=== PATIENT | female | born 1960 | race Caucasian/White ===

== ENCOUNTER 2019-03-08 06:10 | Day surgery (SDC) | payer OTHER ==
[~2019-03-08] VITALS: Ht 157.5 cm; Wt 74.8 kg
[2019-03-08] MEDS ORDERED: MIDAZOLAM 2 MG/2 ML VIAL ONE (07:36)
[2019-03-08] MEDS ORDERED: fentaNYL 0.05 MG/ML VIAL ONE (07:36)
[2019-03-08] MEDS ORDERED: MIDAZOLAM 2 MG/2 ML VIAL IVP ONE (08:10)
== END 2019-03-08 08:25 | disposition home or self-care (01) ==
LOC: MDS 06:10 → MMU 06:11 → MDS 08:25
PROVIDERS: ATTEND Internal Medicine Gastroenterology
DX: K29.70 Gastritis, unspecified, without bleeding (principal); Z90.49 Acquired absence of other specified parts of digestive tract; Z79.84 Long term (current) use of oral hypoglycemic drugs; K76.0 Fatty (change of) liver, not elsewhere classified; E66.9 Obesity, unspecified; Z68.31 Body mass index [BMI] 31.0-31.9, adult
CPT/HCPCS: 36415; 43239; 86677; J2250; J3010